=== PATIENT | male | born 1990 | race Two or more races ===

== ENCOUNTER 2016-05-22 09:03 | Emergency (ER) | payer MEDICAID, OTHER ==
[~2016-05-22] VITALS: Ht 172.7 cm; Wt 81.6 kg
[2016-05-22 09:10] VITALS: BP 133/59
[2016-05-22] MEDS ORDERED: ACETAMINOPHEN ES 500 MG TABLET PO ONE (09:30)
[2016-05-22] MEDS ORDERED: ACETAMINOPHEN ES 500 MG TABLET ONE (09:32)
[2016-05-22] MEDS ORDERED: HYDROCODONE/APAP 5/325MG 1 EACH TABLET ONE (10:10)
[2016-05-22] MEDS ORDERED: TRAMADOL HCL 50 MG TABLET ONE (10:13)
[2016-05-22] MEDS ORDERED: TRAMADOL HCL 50 MG TABLET PO ONE (10:30)
[2016-05-22] MEDS ORDERED: HYDROCODONE/APAP 5/325MG 1 EACH TABLET PO ONE (10:30)
== END 2016-05-22 10:30 | disposition home or self-care (01) ==
LOC: ER 09:06
DX: M54.6 Pain in thoracic spine (principal); V43.62XA Car passenger injured in collision with other type car in traffic accident, initial encounter; Y93.89 Activity, other specified; Y92.89 Other specified places as the place of occurrence of the external cause; Y99.9 Unspecified external cause status
CPT/HCPCS: 71020; 99284; A4606; Z7610

== ENCOUNTER 2023-02-09 07:55 | Emergency (ER) | payer OTHER ==
[~2023-02-09] VITALS: Ht 170.2 cm; Wt 101.2 kg
[2023-02-09] MEDS ORDERED: IBUPROFEN 400 MG TABLET ONE (08:26)
[2023-02-09 08:30] VITALS: BP 120/79; TEMP 98.2; O2SAT 98
[2023-02-09] MEDS ORDERED: IBUPROFEN 400 MG TABLET PO ONE (08:30)
== END 2023-02-09 08:30 ==
LOC: ER 07:58
DX: M54.50 Low back pain, unspecified (principal); I10 Essential (primary) hypertension